=== PATIENT | female | born 1980 | race Caucasian/White ===

== ENCOUNTER 2020-09-19 23:10 | Emergency (ER) | payer BC, OTHER ==
[~2020-09-19 23:10] MED LIST: PREDNISONE 50 M50 MG PO
[2020-09-20 00:25] LABS: HEMOGLOBIN 13.7 gm/dl (12.3-15.3); RED BLOOD COUNT 4.65 M/UL (4.00-5.10); WHITE BLOOD COUNT 5.7 K/UL (4.5-11.0)
[2020-09-20 00:51] LABS: BUN/CREATININE RATIO 16 (0-10)
== END 2020-09-20 03:01 | disposition home or self-care (01) ==
LOC: ER1 23:10
PROVIDERS: Family Medicine
DX: M79.652 Pain in left thigh (principal); J45.909 Unspecified asthma, uncomplicated; I10 Essential (primary) hypertension; Z90.710 Acquired absence of both cervix and uterus
CPT/HCPCS: 80053; 82550; 82553; 83874; 84484; 85025; 85379; 99283

== ENCOUNTER → 2021-05-07 | Outpatient (CLI) | payer BC | LOC: MAMO 04-19 11:30 | DX: Z12.31 Encounter for screening mammogram for malignant neoplasm of breast (principal) | CPT/HCPCS: 77063; 77067 ==